=== PATIENT | male | born 1965 | race Hispanic/Latino ===

== ENCOUNTER 2018-06-13 18:02 | Emergency (ER) | payer BC ==
[2018-06-13 19:49] LABS: Absolute Lymphocytes (CBC) 2.1 K/uL (0.7-4.9); Absolute Monocytes 0.8 K/uL (0.1-1.3); Absolute Neutrophil 5.4 K/uL (1.8-8.0); Basophils % 0.8 % (0-1.3); Eosinophils % 1.2 % (0-4.4); Hematocrit 54.1 % (39.6-49.0); Lymphocytes % 24.4 % (15.3-44.8); MPV 9.7 fL (7.6-11.3); Monocytes % 9.7 % (3.3-12.3); RBC Red Blood Cell Count 5.75 M/uL (4.33-5.43)
[2018-06-13] MEDS ORDERED: ONDANSETRON 4 MG/2 ML VIAL ONE (20:00)
[2018-06-13] MEDS ORDERED: KETOROLAC 30 MG/ML INJ ONE (20:00)
[2018-06-13] MEDS ORDERED: NA CHLORIDE 0.9% 1,000 ML ONE (20:00)
[2018-06-13] MEDS ORDERED: MORPHINE 4 MG/ML SYR ONE (20:00)
[2018-06-13 20:13] LABS: Albumin 3.9 g/dL (3.4-5.0); Bilirubin Direct 0.2 mg/dL (0-0.2); Bilirubin Total 0.7 mg/dL (0.2-1.0); Protein, Total 7.6 g/dL (6.4-8.2)
--- NOTE | 2018-06-13 20:25 | RAD REPORT ---
EXAM DESCRIPTION: CT - Stone Protocol - 06/13/2018 8:05 pm CLINICAL HISTORY: Epigastric pain, left lower quadrant pain COMPARISON: None. TECHNIQUE: Axial 5 mm thick images were obtained without oral or IV contrast. The [id number] span s the entirety of the system partially obscuring uppermost abdomen and lung bases. All CT scans are performed using dose optimization technique as appropriate and may include automated exposure control or mA/KV adjustment according to patient size. FINDINGS: Rijw-rr-oqgimbth left-sided hydronephrosis is present second dairy 2 a 5 mm stone near the UVJ. Positioning is stone may indicate passage into the urinary bladder. No other obstructing or non obstructing calculi. No right-sided hydronephrosis. No suspicious renal masses. Isodense masses and p yelonephritis are not excluded on a stone protocol CT scan. Urinary bladder is only partially filled. There is lobulated contour and prostate gland projecting into the bladder base. No significant adren al finding. Liver shows fatty infiltration. No focal liver lesion. Spleen and pancreas show no suspicious finding s. No gallbladder or biliary tree abnormality identified. No suspicious bowel findings. Left-sided diverticulosis present without diverticulitis. No acute GI p rocess. No hernia, mass or bulky lymphadenopathy noted. No free air, free fluid or inflammatory stranding. Disc and bony degenerative changes are present in the mid and lower lumbar spine. IMPRESSION: Mild to moderate left-sided hydronephrosis secondary to a 5 mm stone at the UVJ. Stone m ay have passed into the bladder. Isodense masses and pyelonephritis are not excluded on stone protocol technique. Fatty infiltration the liver.
--- NOTE | 2018-06-13 20:52 | ER ---
Nurse's Notes [facility] Name: Reji Thompson Age: 52 yrs Sex: Male : 1965 Arrival Date: 06/13/2018 Time: 18:03 Bed 26 Private MD: Candelario Almonte H Diagnosis: Hydronephrosis with renal and ureteral calculous obstruction-5mm uvj Presentation: 06/13 18:26 Presenting complaint: Patient states: i am having pain in my stomach started this tw2 afternoon, lower LEFT side of my stomach. Transition of care: patient was not received from another setting of care. Onset of symptoms was June 13, 2018. Risk Assessment: Do you want to hurt yourself or someone else? Patient reports no desire to harm self or others. Initial Sepsis Screen: Does the patient meet any 2 criteria? No. Patient's initial sepsis screen is negative. Does the patient have a suspected source of infection? No. Patient's initial sepsis screen is negative. Care prior to arrival: None. 18:26 Method Of Arrival: Ambulatory tw2 18:26 Acuity: IRCHARD 3 tw2 Triage Assessment: 18:29 General: Appears uncomfortable, Behavior is calm, cooperative, appropriate for age. tw2 Pain: Complains of pain in left upper quadrant and left lower quadrant. GI: Reports lower abdominal pain, nausea. Historical: - Allergies: 18:29 No Known Allergies; tw2 - Home Meds: 18:29 aspirin 81 mg Oral chew 1 tab once daily [Active]; metoprolol tartrate 100 mg Oral tab tw2 1 tab once daily [Active]; doxycycline hyclate 20 mg Oral tab 1 tab 2 times per day [Active]; - PMHx: 18:29 Hypertension; tw2 - PSHx: 18:29 Ear surgery; tw2 - Immunization history:: Adult Immunizations. - Social history:: Smoking status: . - Ebola Screening: : Patient denies travel to an Ebola-affected area in the 21 days before illness onset. - Family history:: not pertinent. Screenin:30 Abuse screen: Denies threats or abuse. Denies injuries from another. Nutritional ca1 screening: No deficits noted. Tuberculosis screening: No symptoms or risk factors identified. Fall Risk None identified. Assessment: 18:30 General: Appears in no apparent distress. comfortable, Behavior is calm, cooperative, ca1 appropriate for age. Pain: Complains of pain in left lower quadrant Pain does not radiate. Pain currently is 10 out of 10 on a pain scale. Quality of pain is described as sharp, Pain began 3 hours ago. Is continuous. Neuro: Level of Consciousness is awake, alert, obeys commands, Oriented to person, place, time, situation. Cardiovascular: Heart tones S1 S2 present Capillary refill < 3 seconds Patient's skin is warm and dry. Respiratory: Airway is patent Respiratory effort is even, unlabored, Respiratory pattern is regular, symmetrical, Breath sounds are clear bilaterally. GI: Abdomen is round non-distended, Bowel sounds present X 4 quads. Abd is soft and non tender X 4 quads. Reports nausea. : No deficits noted. No signs and/or symptoms were reported regarding the genitourinary system. EENT: No deficits noted. No signs and/or symptoms were reported regarding the EENT system. Derm: Skin is intact, is healthy with good turgor, Skin is pink, warm \T\ dry. Musculoskeletal: Circulation, motion, and sensation intact. Capillary refill < 3 seconds. 19:35 Reassessment: Patient appears in no apparent distress at this time. Patient and/or ca1 family updated on plan of care and expected duration. Pain level reassessed. Patient is alert, oriented x 3, equal unlabored respirations, skin warm/dry/pink. 20:30 Reassessment: Patient appears in no apparent distress at this time. Patient and/or ca1 family updated on plan of care and expected duration. Pain level reassessed. Patient is alert, oriented x 3, equal unlabored respirations, skin warm/dry/pink. 21:00 Reassessment: Patient appears in no apparent distress at this time. Patient is alert, ca1 oriented x 3, equal unlabored respirations, skin warm/dry/pink. Vital Signs: 18:27 BP 166 / 115; Pulse 82; Resp 17; Temp 98.5(O); Pulse Ox 97% on R/A; Weight 86.64 kg tw2 (R); Height 5 ft. 9 in. (175.26 cm); Pain 8/10; 19:35 BP 147 / 104; Pulse 75; Resp 18 S; Pulse Ox 95% on R/A; ca1 20:50 BP 145 / 105; Pulse 77; Resp 19 S; Pulse Ox 95% on R/A; ca1 18:27 Body Mass Index 28.21 (86.64 kg, 175.26 cm) tw2 ED Course: 18:03 Patient arrived in ED. as 18:03 Candelario Almonte DO is Private Physician. as 18:27 Triage completed. tw2 18:29 Arm band placed on. tw2 18:30 Patient has correct armband on for positive identification. Placed in gown. Bed in low ca1 position. Call light in reach. Side rails up X 1. Pulse ox on. NIBP on. Warm blanket given. 18:31 Ashleigh Henderson, BRITTNI is Primary Nurse. ca1 19:12 Inserted saline lock: 18 gauge in right antecubital area, using aseptic technique. ca1 Blood collected. 19:38 Oscar Castellanos MD is Attending Physician. santana 19:[address] via wheelchair. vm2 20:00 CT completed. Patient tolerated procedure well. Patient moved back from CT. vm2 20:06 CT Stone Protocol In Process Unspecified. EDMS 20:51 Candelario Almonte DO is Referral Physician. santana 20:51 Janet Gomez MD is Referral Physician. santana 21:05 IV discontinued, intact, bleeding controlled, No redness/swelling at site. Pressure ca1 dressing applied. 21:06 No provider procedures requiring assistance completed. ca1 Administered Medications: 19:47 Drug: NS 0.9% 1000 ml Route: IV; Rate: 1 bolus; Site: right antecubital; ca1 21:02 Follow up: Response: No adverse reaction; IV Status: Completed infusion ca1 19:47 Drug: Zofran 4 mg Route: IVP; Site: right antecubital; ca1 21:03 Follow up: Response: No adverse reaction; Nausea is decreased ca1 19:50 Drug: morphine 4 mg Route: IVP; Site: right antecubital; ca1 21:03 Follow up: Response: No adverse reaction; Pain is decreased ca1 19:53 Drug: TORadol 30 mg Route: IVP; Site: right antecubital; ca1 21:03 Follow up: Response: No adverse reaction; Pain is decreased ca1 20:57 Drug: Flomax 0.4 mg Route: PO; ca1 21:02 Follow up: Response: No adverse reaction; Medication administered at discharge. ca1 20:57 Drug: Rocephin - (cefTRIAXone) 1 grams Route: IVPB; Infused Over: 30 mins; Site: right ca1 antecubital; 21:03 Follow up: Response: Medication administered at discharge.; IV Status: IVP per pharmacy ca1 protocol Outcome: 20:52 Discharge ordered by MD. dillon 21:06 Discharged to home ambulatory, with significant other. ca1 21:06 Condition: stable 21:06 Discharge instructions given to patient, Instructed on discharge instructions, follow up and referral plans. medication usage, Demonstrated understanding of instructions, follow-up care, medications, Prescriptions given X 3. 21:16 Patient left the ED. ca1 Signatures: Dispatcher [employer] EDMS Oscar Castellanos MD MD cha Martinez, Amelia as Wise, Tara RN RN tw2 Carolann Bautista [facility] Ashleigh Henderson RN RN ca1
--- NOTE | 2018-06-13 20:52 | EDPHYS ---
Physician Documentation [facility] Name: Reji Thompson Age: 52 yrs Sex: Male : 1965 Arrival Date: 06/13/2018 Time: 18:03 Bed 26 Private MD: Candelario Almonte H ED Physician Oscar Castellanos HPI: 06/13 19:45 This 52 yrs old Male presents to ER via Ambulatory with complaints of santana Abdominal Pain. 19:45 The patient presents with abdominal pain in the left upper quadrant, in the left lower santana quadrant. Onset: The symptoms/episode began/occurred today. The symptoms do not radiate. Associated signs and symptoms: none. The symptoms are described as constant. Modifying factors: The symptoms are alleviated by nothing, the symptoms are aggravated by nothing. Severity of pain: At its worst the pain was moderate. Historical: - Allergies: 18:29 No Known Allergies; tw2 - Home Meds: 18:29 aspirin 81 mg Oral chew 1 tab once daily [Active]; metoprolol tartrate 100 mg Oral tab tw2 1 tab once daily [Active]; doxycycline hyclate 20 mg Oral tab 1 tab 2 times per day [Active]; - PMHx: 18:29 Hypertension; tw2 - PSHx: 18:29 Ear surgery; tw2 - Immunization history:: Adult Immunizations. - Social history:: Smoking status: . - Ebola Screening: : Patient denies travel to an Ebola-affected area in the 21 days before illness onset. - Family history:: not pertinent. ROS: 19:45 Constitutional: Negative for fever, chills, and weight loss, Eyes: Negative for injury, santana pain, redness, and discharge, ENT: Negative for injury, pain, and discharge, Neck: Negative for injury, pain, and swelling, Cardiovascular: Negative for chest pain, palpitations, and edema, Respiratory: Negative for shortness of breath, cough, wheezing, and pleuritic chest pain, Back: Negative for injury and pain, : Negative for injury, bleeding, discharge, and swelling, MS/Extremity: Negative for injury and deformity, Skin: Negative for injury, rash, and discoloration, Neuro: Negative for headache, weakness, numbness, tingling, and seizure, Psych: Negative for depression, anxiety, suicide ideation, homicidal ideation, and hallucinations, Allergy/Immunology: Negative for hives, rash, and allergies, Endocrine: Negative for neck swelling, polydipsia, polyuria, polyphagia, and marked weight changes, Hematologic/Lymphatic: Negative for swollen nodes, abnormal bleeding, and unusual bruising. 19:45 Abdomen/GI: Positive for abdominal pain, of the left upper quadrant and left lower quadrant. Exam: 19:45 Constitutional: This is a well developed, well nourished patient who is awake, alert, santana and in no acute distress. Head/Face: Normocephalic, atraumatic. Eyes: Pupils equal round and reactive to light, extra-ocular motions intact. Lids and lashes normal. Conjunctiva and sclera are non-icteric and not injected. Cornea within normal limits. Periorbital areas with no swelling, redness, or edema. ENT: Nares patent. No nasal discharge, no septal abnormalities noted. Tympanic membranes are normal and external auditory canals are clear. Oropharynx with no redness, swelling, or masses, exudates, or evidence of obstruction, uvula midline. Mucous membranes moist. Neck: Trachea midline, no thyromegaly or masses palpated, and no cervical lymphadenopathy. Supple, full range of motion without nuchal rigidity, or vertebral point tenderness. No Meningismus. Chest/axilla: Normal chest wall appearance and motion. Nontender with no deformity. No lesions are appreciated. Cardiovascular: Regular rate and rhythm with a normal S1 and S2. No gallops, murmurs, or rubs. Normal PMI, no JVD. No pulse deficits. Respiratory: Lungs have equal breath sounds bilaterally, clear to auscultation and percussion. No rales, rhonchi or wheezes noted. No increased work of breathing, no retractions or nasal flaring. Back: No spinal tenderness. No costovertebral tenderness. Full range of motion. Male : Normal genitalia with no discharge or lesions. Skin: Warm, dry with normal turgor. Normal color with no rashes, no lesions, and no evidence of cellulitis. MS/ Extremity: Pulses equal, no cyanosis. Neurovascular intact. Full, normal range of motion. Neuro: Awake and alert, GCS 15, oriented to person, place, time, and situation. Cranial nerves II-XII grossly intact. Motor strength 5/5 in all extremities. Sensory grossly intact. Cerebellar exam normal. Normal gait. Psych: Awake, alert, with orientation to person, place and time. Behavior, mood, and affect are within normal limits. 19:45 Abdomen/GI: Inspection: abdomen appears normal, Bowel sounds: normal, Palpation: mild abdominal tenderness, in the left upper quadrant and left lower quadrant, Liver: no appreciated palpable abnormalities, Hernia: not appreciated. Vital Signs: 18:27 BP 166 / 115; Pulse 82; Resp 17; Temp 98.5(O); Pulse Ox 97% on R/A; Weight 86.64 kg tw2 (R); Height 5 ft. 9 in. (175.26 cm); Pain 8/10; 19:35 BP 147 / 104; Pulse 75; Resp 18 S; Pulse Ox 95% on R/A; ca1 20:50 BP 145 / 105; Pulse 77; Resp 19 S; Pulse Ox 95% on R/A; ca1 18:27 Body Mass Index 28.21 (86.64 kg, 175.26 cm) tw2 MDM: 19:38 Patient medically screened. [facility] 19:49 Data reviewed: vital signs, nurses notes, lab test result(s), radiologic studies, CT santana scan. 06/13 19:23 Order name: Urine Dipstick--Ancillary (enter results) 2 06/13 19:34 Order name: Basic Metabolic Panel; Complete Time: 20:50 ca1 06/13 19:34 Order name: CBC with Diff; Complete Time: 20:50 ca1 06/13 19:34 Order name: Creatinine for Radiology; Complete Time: 20:50 ca1 06/13 19:34 Order name: Hepatic Function; Complete Time: 20:50 ca1 06/13 19:34 Order name: Lipase; Complete Time: 20:50 ca1 06/13 19:34 Order name: IV Saline Lock; Complete Time: 19:34 ca1 06/13 19:44 Order name: CT Stone Protocol; Complete Time: 20:50 [facility] 06/13 19:34 Order name: Labs collected and sent; Complete Time: 19:34 ca1 Administered Medications: 19:47 Drug: NS 0.9% 1000 ml Route: IV; Rate: 1 bolus; Site: right antecubital; ca1 21:02 Follow up: Response: No adverse reaction; IV Status: Completed infusion ca1 19:47 Drug: Zofran 4 mg Route: IVP; Site: right antecubital; ca1 21:03 Follow up: Response: No adverse reaction; Nausea is decreased ca1 19:50 Drug: morphine 4 mg Route: IVP; Site: right antecubital; ca1 21:03 Follow up: Response: No adverse reaction; Pain is decreased ca1 19:53 Drug: TORadol 30 mg Route: IVP; Site: right antecubital; ca1 21:03 Follow up: Response: No adverse reaction; Pain is decreased ca1 20:57 Drug: Flomax 0.4 mg Route: PO; ca1 21:02 Follow up: Response: No adverse reaction; Medication administered at discharge. ca1 20:57 Drug: Rocephin - (cefTRIAXone) 1 grams Route: IVPB; Infused Over: 30 mins; Site: right ca1 antecubital; 21:03 Follow up: Response: Medication administered at discharge.; IV Status: IVP per pharmacy ca1 protocol Disposition: 06/13/18 20:52 Discharged to Home. Impression: Hydronephrosis with renal and ureteral calculous obstruction - 5mm uvj. - Condition is Stable. - Discharge Instructions: Kidney Stones, Kidney Stones, [id number], Hydronephrosis, Dietary Guidelines to Help Prevent Kidney Stones. - Prescriptions for Tylenol- Codeine #3 300-30 mg Oral Tablet - take 2 tablet by ORAL route every 6 hours As needed; 30 tablet. Flomax 0.4 mg Oral Capsule, Sust. Release 24 hr - take 1 capsule by ORAL route once daily 1/2 hour following the same meal each day; 30 capsule. Cipro 500 mg Oral Tablet - take 1 tablet by ORAL route every 12 hours for 7 days; 14 tablet. - Medication Reconciliation Form, Thank You Letter, Antibiotic Education, Prescription Opioid Use, Work release form form. - Follow up: Candelario Almonte DO; When: 2 - 3 days; Reason: Recheck today's complaints, Continuance of care, Re-evaluation by your physician. Follow up: Janet Gomez MD; When: 2 - 3 days; Reason: Recheck today's complaints, Continuance of care, Re-evaluation by your physician. - Problem is new. - Symptoms have improved. Signatures: Dispatcher [employer] Oscar Parmar MD MD cha Wise, Tara RN RN tw2 Acob, Ashleigh, RN RN ca1 Corrections: (The following items were deleted from the chart) 21:16 20:52 06/13/2018 20:52 Discharged to Home. Impression: Hydronephrosis with renal and ca1 ureteral calculous obstruction - 5mm uvj. Condition is Stable. Forms are Medication Reconciliation Form, Thank You Letter, Antibiotic Education, Prescription Opioid Use. Follow up: Candelario Almonte; When: 2 - 3 days; Reason: Recheck today's complaints, Continuance of care, Re-evaluation by your physician. Follow up: Janet Gomez; When: 2 - 3 days; Reason: Recheck today's complaints, Continuance of care, Re-evaluation by your physician. Problem is new. Symptoms have improved. santana
[2018-06-13] MEDS ORDERED: TAMSULOSIN 0.4 MG SR CAP ONE (21:11)
[2018-06-13] MEDS ORDERED: CEFTRIAXONE/SWI 1gm 1 GM/10 ML SYR ONE (21:12)
[2018-06-13 21:35] LABS: Urine Blood 2+ (NEG); Urine Glucose NEGATIVE (NEG); Urine Protein TRACE (NEG); Urine Specific Gravity 1.025 (1.005-1.030)
== END 2018-06-13 21:16 | disposition home or self-care (01) ==
LOC: ER 18:02
DX: N13.2 Hydronephrosis with renal and ureteral calculous obstruction (principal); I10 Essential (primary) hypertension; Z79.82 Long term (current) use of aspirin; Z79.899 Other long term (current) drug therapy
CPT/HCPCS: 36415; 74176; 76377; 80048; 80076; 81003; 83690; 85025; 96361; 96374; 96375; 99284; J0696; J2405; J7030